=== PATIENT | male | born 1940 | race Two or more races ===

== ENCOUNTER 2024-06-16 18:40 | Emergency (ER) | payer OTHER ==
[~2024-06-16] VITALS: Ht 172.7 cm; Wt 49.9 kg
[2024-06-16] MEDS ORDERED: ACETAMINOPHEN 500 MG GEL..CAP PO ONE (21:16)
[2024-06-16 22:04] LABS: HEMATOCRIT 36.2 % (39.0-48.0); HEMOGLOBIN 12.6 g/dL (13-16.00); MEAN CORPUSCULAR HEMOGLOBIN 30.7 pg (27.00-32.0); MEAN CORPUSCULAR HGB CONC 34.9 g/dl (32.0-36.0); RED BLOOD COUNT 4.11 M/uL (4.00-6.00); RED CELL DISTRIBUTION WIDTH 13.6 % (11.5-14.5)
[2024-06-16 22:05] LABS: PLATELET COUNT 107 K/uL (150-450)
[2024-06-16 22:22] LABS: CALCIUM 8.6 mg/dL (8.5-10.1); CREATININE SERUM 0.79 mg/dL (0.70-1.30); GFR 93.67; POTASSIUM 3.7 mEq/L (3.5-5.1)
== END 2024-06-17 01:31 | disposition home or self-care (01) ==
LOC: ER 18:40
PROVIDERS: Nurse Practitioner Family
DX: R41.0 Disorientation, unspecified (principal)

== ENCOUNTER 2024-10-07 10:23 | Emergency (ER) | payer OTHER ==
[~2024-10-07] VITALS: Ht 162.6 cm; Wt 52.2 kg
[~2024-10-07 10:23] MED LIST: LOTREL 10-20 M1 EACH
[2024-10-07] MEDS ORDERED: REMINYL8 MG PO (10:51)
[2024-10-07] MEDS ORDERED: PROSCAR5 MG PO (10:51)
[2024-10-07 11:33] LABS: HEMATOCRIT 38.8 % (39.0-48.0); HEMOGLOBIN 13.6 g/dL (13-16.00); MEAN CELL VOLUME 89.6 fL (80.0-100.00); MEAN CORPUSCULAR HEMOGLOBIN 31.5 pg (27.00-32.0); MEAN CORPUSCULAR HGB CONC 35.2 g/dl (32.0-36.0); PLATELET COUNT 212 K/uL (150-450); RED BLOOD COUNT 4.33 M/uL (4.00-6.00); RED CELL DISTRIBUTION WIDTH 13.7 % (11.5-14.5)
[2024-10-07 11:56] LABS: CREATININE SERUM 0.8 mg/dL (0.70-1.30); GFR 92.1; POTASSIUM 4.49 mEq/L (3.5-5.1)
[2024-10-07 12:13] LABS: PH,URINE 6.5 (5.0-8.0); URINE APPEARANCE Cloudy; URINE BILIRRUBIN Negative (NEGATIVE); URINE BLOOD Large; URINE COLOR Yellow; URINE GLUCOSE Negative (NEGATIVE); URINE KETONE Trace (NEGATIVE); URINE LEUKOCYTE Large; URINE NITRATE Negative; URINE PROTEIN 30 (NEGATIVE); URINE UROBILINOGEN 0.2 E.U./dl
[2024-10-07 12:14] LABS: URINE BACTERIA 3249.4 uL (0.0-1933); URINE RBC 3287.2 uL (0.0-20.8); URINE WBC 1297.3 uL (0.0-23.2)
[2024-10-07 12:26] LABS: URINE EPITHELIAL CELLS 0.6 uL (0.0-38.8)
[2024-10-07] MEDS ORDERED: CEFTRIAXONE SODIUM 1,000 MG VIAL IV STA (12:33)
== END 2024-10-07 13:34 | disposition home or self-care (01) ==
LOC: ER 10:25
PROVIDERS: General Practice
DX: N39.0 Urinary tract infection, site not specified (principal); R53.1 Weakness; B95.2 Enterococcus as the cause of diseases classified elsewhere; Z16.11 Resistance to penicillins
CPT/HCPCS: 36415; 96365; 99282; J0696